=== PATIENT | female | born 1990 | race Two or more races ===

== ENCOUNTER 2017-01-25 15:11 | Emergency (ER) | payer OTHER ==
[2017-01-25 15:21] VITALS: BP 121/63; PULSE 96; RESP 16; TEMP 98.2; O2SAT 97
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
== END 2017-01-25 15:52 | disposition home or self-care (01) ==
DX: S16.1XXA Strain of muscle, fascia and tendon at neck level, initial encounter (principal); V49.40XA Driver injured in collision with unspecified motor vehicles in traffic accident, initial encounter; Y92.410 Unspecified street and highway as the place of occurrence of the external cause; Y99.8 Other external cause status; Y93.89 Activity, other specified